=== PATIENT | male | born 1955 | race Caucasian/White ===

== ENCOUNTER → 2020-11-12 11:08 | Outpatient (CLI) | payer MEDICARE, SELFPAY ==
[2020-11-12] MEDS: COVID-19 VACC, Ad26(JANSSEN)/PF 0.5 ML IM (11:17)
== END ==
PROVIDERS: Visit Provider Internal Medicine
DX: Z23 Encounter for immunization (principal)
CPT/HCPCS: 0031A; 91303

== ENCOUNTER → 2021-06-25 13:36 | Outpatient (CLI) | payer MEDICARE, SELFPAY ==
[2021-06-25] MEDS: COVID-19 VACC #3, MRNA(MOD) 50 MCG/0.25 ML VIAL IM (13:44)
== END ==
PROVIDERS: Visit Provider Internal Medicine
DX: Z23 Encounter for immunization (principal)
CPT/HCPCS: 0013A; 91301